=== PATIENT | male | born 1965 | race Caucasian/White ===

== ENCOUNTER 2020-10-23 13:38 | Emergency (ER) | payer OTHER ==
[~2020-10-23] VITALS: Ht 167.6 cm; Wt 72.1 kg
[2020-10-23 14:05] VITALS: BP 115/79
[2020-10-23] MEDS ORDERED: ACETAMINOPHEN EXTRA STRENGTH 500 MG TAB PO ONE (14:45)
--- NOTE | 2020-10-23 15:00 | NUR ---
Patient transported by WC to [facility]
--- NOTE | 2020-10-23 15:17 | NUR ---
Pt returned to bed 12 by WC from RAD.
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
[2020-10-23] MEDS ORDERED: LIDOCAINE/EPI 1% 1:100000 20 ML VIAL INJ ONE (15:30)
--- NOTE | 2020-10-23 15:35 | NUR ---
tdap signature consent form obtained
--- NOTE | 2020-10-23 16:22 | NUR ---
DR STALLINGS AT BEDSIDE
[2020-10-23] MEDS ORDERED: CEPH-588 PO (16:28)
== END 2020-10-23 16:36 | disposition home or self-care (01) ==
LOC: MED 13:38
DX: S80.12XA Contusion of left lower leg, initial encounter (principal); S29.9XXA Unspecified injury of thorax, initial encounter; S39.92XA Unspecified injury of lower back, initial encounter; V53.5XXA Driver of pick-up truck or van injured in collision with car, pick-up truck or van in traffic accident, initial encounter; Y93.89 Activity, other specified; Y92.89 Other specified places as the place of occurrence of the external cause; Y99.8 Other external cause status
CPT/HCPCS: 71045; 72170; 73562; 73590; 90471; 90715; 99284; J2001

== ENCOUNTER 2020-11-08 15:44 | Emergency (ER) | payer OTHER ==
[~2020-11-08] VITALS: Ht 167.6 cm; Wt 72.6 kg
[~2020-11-08 15:44] MED LIST: CEPH-588 PO
[2020-11-08 15:56] VITALS: BP 128/81
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
[2020-11-08] MEDS ORDERED: KETOROLAC 30 MG/ML VIAL IM ONE (16:25)
--- NOTE | 2020-11-08 16:40 | NUR ---
PT TAKEN TO CT SCAN VIA W/C
--- NOTE | 2020-11-08 16:59 | NUR ---
PT RETURNED FROM CT
[2020-11-08] MEDS ORDERED: SULF-59 PO (18:02)
[2020-11-08] MEDS ORDERED: ACET-8386 PO (18:02)
[2020-11-08 18:11] VITALS: BP 130/78
--- NOTE | 2020-11-08 18:11 | NUR ---
Patient discharged with v/s stable. Written and verbal after care instructions given and explained. Patient alert, oriented and verbalized understanding of instructions. Ambulatory with steady gait. All questions addressed prior to discharge. ID band removed. Patient advised to follow up with PMD. Rx of NORCO, AND BACTRIM given. Patient educated on indication of medication including possible reaction and side effects. Opportunity to ask questions provided and answered.
== END 2020-11-08 18:11 | disposition home or self-care (01) ==
LOC: MED 15:44
DX: S80.12XA Contusion of left lower leg, initial encounter (principal); L03.116 Cellulitis of left lower limb; Z79.899 Other long term (current) drug therapy; V89.2XXA Person injured in unspecified motor-vehicle accident, traffic, initial encounter; Y93.89 Activity, other specified; Y92.89 Other specified places as the place of occurrence of the external cause; Y99.8 Other external cause status
CPT/HCPCS: 73700; 96372; 99284; J1885